=== PATIENT | female | born 1960 | race Caucasian/White ===

== ENCOUNTER → 2017-12-15 | Outpatient (CLI) | payer MEDICARE ==
[~2017-12-15] MED LIST: ALPR1TAB7; AMPH30CA; DEXA4TAB; ESTR1TAB24; GADOBUTROL 7.5 MMOL/7.5 ML (GADAVIST) VIAL IV ONE; HYDR-3820; HYDR-3820 PO; HYDR25TA4; LEVO5TAB12; LISI-552; OMEP20TA7 PO; ONDA8TAB12; PROC10TA10; VORT10TA
[2017-12-15 09:10] LABS: BUN/CREATININE RATIO 19; CREATININE SERUM 0.79 MG/DL (0.60-1.30); GFR ESTIMATED > 60
--- NOTE | 2018-01-11 13:49 | RADIOLOGY REPORT ---
NAME: TITI DEL CID [facility] REC#: [id number] PT STATUS: REG CLI : 1960 PHYSICIAN: FINN BLUM, Mk ADMIT DATE: 12/15/17/RAD CORRECTED Signed Date of Exam:12/15/17 MRI BREAST BILAT W&W/O CON TECHNIQUE: Utilizing 1.5 Yulisa magnet, patient was placed in a prone position with 8-channel dual breast coil utilized. Axial STIR precontrasted image and axial T1 fat-sat postcontrast high-resolution images obtained. Sagittal T2-weighted images precontrast, bilaterally, as well. Sagittal vibrant temporal images were obtained pre and post contrast with bolus technique utilized of gadolinium. Images are postcontrast immediately and subsequently for 7 minutes. Pre and post contrasted images are then evaluated with [employer] for evaluation of possible angiogenesis. INDICATION: Breast cancer COMPARISON: 11/23/2009 FINDINGS: The bilateral breasts demonstrate moderate background glandularity. The bilateral breasts demonstrate mild background enhancement. A bilobed mildly spiculated mass is identified within the far posterior depth of the upper outer quadrant of the left breast. This mass measures 3.5 x 2.3 x 3.0 cm. This demonstrates predominately washout kinetics. Magnetic susceptibility artifact related to a presumed biopsy clip is seen along the inferior margin of this mass lesion. This mass lesion extends to the left pectoralis musculature with loss of the fat plane between this mass and the pectoralis muscle. There is enhancement of the pectoralis fascia. However, no definite enhancement of the pectoralis musculature itself. This mass extends to approximately 3 mm away from the skin surface of the lateral left breast. Additional scattered foci of enhancement are identified within the bilateral breasts without additional suspicious enhancing mass or non-mass enhancement. An abnormally enlarged lymph node within the left axilla is present. This lymph node measures 2.3 x 1.7 x 2.1 cm. Loss of the normal fatty hilum. No additional pathologically enlarged lymph nodes identified within the axilla. No internal mammary adenopathy. Minimally visualized portions of the upper abdomen are unremarkable. IMPRESSION: Unifocal 3.5 cm mass within the far posterior depth of the upper outer quadrant of the left breast is felt to relate to carcinoma. Recommend correlation with prior biopsy. This mass is seen extending to the left pectoralis musculature with enhancement of the fascia without definite enhancement/invasion of the muscle itself. This is associated with an abnormal left axillary lymph node which is concerning for regional metastatic disease. This lymph node was identified on the recent ultrasound. No evidence of malignancy within the right breast. FOLLOWUP: Biopsy of this highly suspicious mass within the upper outer quadrant of the left breast is recommended if this has not already been performed. Given that there is an apparent biopsy clip within this mass, this has likely been biopsied. However, no available biopsy images, report, or pathology report are available. Therefore, recommend correlation. If this has previously been biopsied and demonstrated to relate to an underlying cancer, then surgical consultation would be recommended. If the mass within the upper outer quadrant of the left breast has not been biopsied, this examination is considered a BI-RADS category 4, suspicious of malignancy, ultrasound-guided biopsy is recommended. However, if this mass has been recently biopsied and shown to relate to carcinoma, then the examination would be considered a BI-RADS category 6, known malignancy and surgical consultation would be indicated. Dictated by: Dictated on workstation # [id number] Dict: 12/16/17 0912 Trans: 12/16/[id number] [facility] [id number] Interpreted by: ANNA MARIE DEL VALLE MD Electronically signed by: ANNA MARIE DEL VALLE MD 12/16/17 1641 [facility]
== END ==
LOC: RAD 08:38
PROVIDERS: ATTEND Nurse Practitioner Family
DX: C50.912 Malignant neoplasm of unspecified site of left female breast (principal); C77.3 Secondary and unspecified malignant neoplasm of axilla and upper limb lymph nodes
CPT/HCPCS: 36415; 77059; 82565; 84520

== ENCOUNTER 2018-01-11 04:27 | Emergency (ER) | payer MEDICARE ==
[~2018-01-11] VITALS: Ht 162.6 cm; Wt 58.1 kg
--- OUTSIDE RECORDS SUMMARY | 2018-01-11 04:34 | XMS REPORT ---
Author JABIER Molina Organization [employer] Address Unknown Phone Unavailable Care Team Providers Care Pollution Control Technician Name Role Phone JABIER ORTIZ CP Unavailable Allergies No Known Allergies Problems No Known Problems Medications No Known Medications Results No Known Results Summary Purpose [employer] Submission
--- OUTSIDE RECORDS SUMMARY | 2018-01-11 04:34 | XMS REPORT ---
Author Author JABIER ORTIZ [facility] Address [address] [place] [address] Care Team Providers Care Form Grader Operator Name Role Phone JABIER ORTIZ Unavailable PROBLEMS Unknown Problems ALLERGIES Unknown Allergies SOCIAL HISTORY No smoking Hx information available PLAN OF CARE VITAL SIGNS MEDICATIONS Unknown Medications RESULTS No Results PROCEDURES No Known procedures IMMUNIZATIONS No Known Immunizations
[2018-01-11] MEDS ORDERED: KETOROLAC 30 MG/ML VIAL IVP ONE (04:45)
[2018-01-11] MEDS ORDERED: ONDANSETRON 4 MG/2 ML (SDV) Z0FRAN IVP ONE (04:45)
[2018-01-11] MEDS ORDERED: NS IV 1000 ML 1,000 ML IV ONE (04:45)
[2018-01-11 05:10] LABS: BASOPHILS # (AUTO) 0.1 10^3/uL (0.0-0.1); BASOPHILS % (AUTO) 2 % (0-10); EOSINOPHILS % (AUTO) 0 % (0-10); HEMATOCRIT 36 % (35-52); HEMOGLOBIN 13.1 G/DL (11.5-16.0); LYMPHOCYTES # (AUTO) 1.1 X 10^3 (1.0-4.0); LYMPHOCYTES % (AUTO) 13 % (12-44); MEAN CORPUSCULAR HEMOGLOBIN 32 PG (25-34); MEAN CORPUSCULAR HGB CONC 36 G/DL (32-36); MEAN CORPUSCULAR VOLUME 88 FL (80-99); MEAN PLATELET VOLUME 11.7 FL (7.4-10.4); MONOCYTES # (AUTO) 1.4 X 10^3 (0.0-1.0); MONOCYTES % (AUTO) 16 % (0-12); NEUTROPHILS # (AUTO) 5.9 X 10^3 (1.8-7.8); NEUTROPHILS % (AUTO) 69 % (42-75); PLATELET COUNT 210 10^3/uL (130-400); RED BLOOD COUNT 4.09 10^6/uL (4.35-5.85); WHITE BLOOD COUNT 8.5 10^3/uL (4.3-11.0)
[2018-01-11] MEDS ORDERED: HYDR-3820 (05:25)
[2018-01-11] MEDS ORDERED: AMPH30CA (05:25)
[2018-01-11] MEDS ORDERED: PROC10TA10 (05:25)
[2018-01-11] MEDS ORDERED: ESTR1TAB24 (05:25)
[2018-01-11] MEDS ORDERED: ALPR1TAB7 (05:25)
[2018-01-11] MEDS ORDERED: HYDR25TA4 (05:25)
[2018-01-11] MEDS ORDERED: VORT10TA (05:25)
[2018-01-11] MEDS ORDERED: LISI-552 (05:25)
[2018-01-11] MEDS ORDERED: DEXA4TAB (05:25)
[2018-01-11 05:29] LABS: ALANINE AMINOTRANSFERASE 40 U/L (0-55); ALBUMIN 4.5 GM/DL (3.2-4.5); ALKALINE PHOSPHATASE 114 U/L (40-136); BILIRUBIN,TOTAL 0.4 MG/DL (0.1-1.0); BUN/CREATININE RATIO 31; CALCIUM 9.3 MG/DL (8.5-10.1); CARBON DIOXIDE 26 MMOL/L (21-32); CHLORIDE 88 MMOL/L (98-107); CREATINE KINASE 51 U/L (29-168); CREATININE SERUM 0.65 MG/DL (0.60-1.30); GFR ESTIMATED > 60; GLUCOSE 120 MG/DL (70-105); MAGNESIUM 1.9 MG/DL (1.8-2.4); POTASSIUM 3.3 MMOL/L (3.6-5.0); SODIUM 127 MMOL/L (135-145)
[2018-01-11] MEDS ORDERED: LEVO5TAB12 (05:29)
[2018-01-11] MEDS ORDERED: ONDA8TAB12 (05:29)
--- NOTE | 2018-01-11 05:32 | ED General ---
General Chief Complaint: Abdominal/GI Problems Stated Complaint: STARTED CHEMO 1 WK AGO, FEELS TERRIBLE Nursing Triage Note: Pt presents reporting N/V/D with post op chemo 1 week. Body aches reported Nursing Sepsis Screen: No Definite Risk Source of Information: Patient, Family Exam Limitations: No Limitations History of Present Illness Date Seen by Provider: Jan 11, 2018 Time Seen by Provider: 04:30 Initial Comments This 57-year-old woman presents to the emergency room with diarrhea, vomiting, and generalized pain that started after finishing her first round of chemotherapy one week ago. The symptoms started about 4 days ago. She was recently diagnosed with breast cancer. She is receiving her cancer treatment in the [facility]. She received a Neulasta injection after the chemotherapy. She denies fever, cough, or other symptoms of acute infectious illness. Patient took Xanax just prior to arrival. Allergies and Home Medications Allergies Coded Allergies: No Known Drug Allergies (Unverified , 12/15/17) Patient Home Medication List Home Medication List Reviewed: Yes Review of Systems Constitutional: no symptoms reported EENTM: no symptoms reported Respiratory: no symptoms reported Cardiovascular: no symptoms reported Gastrointestinal: see HPI Genitourinary: no symptoms reported : No Musculoskeletal: see HPI Skin: no symptoms reported Psychiatric/Neurological: No Symptoms Reported Hematologic/Lymphatic: No Symptoms Reported Immunological/Allergic: no symptoms reported Past Fdqwiig-Yxainh-Qjhzvj Hx Past Med/Social Hx: Reviewed and Corrections made Patient Social History Alcohol Use: Occasionally Uses Recreational Drug Use: No Smoking Status: Former Smoker Former Smoker, Quit: Jun 20, 1997 Recent Foreign Travel: No Contact w/Someone Who Travel: No Recent Infectious Disease Expo: No Recent Hopitalizations: No Seasonal Allergies Seasonal Allergies: No Past Medical History Surgeries: Yes (port) Orthopedic Respiratory: No Cardiac: Yes Hypertension Neurological: No : No Reproductive Disorders: No Genitourinary: No Gastrointestinal: No Musculoskeletal: Yes ([place]) Endocrine: No HEENT: No Cancer: Yes Breast Did You Recieve Any Treatments: Yes What Type of Treatment Did You: Chemotherapy Psychosocial: No Integumentary: No Physical Exam Vital Signs Vital Signs - First Documented 01/11/18 04:32 Temp 97.5 Pulse 77 Resp 20 B/P (MAP) 173/98 (123) Pulse Ox 100 O2 Delivery Room Air Capillary Refill : Less Than 3 Seconds Height, Weight, BMI Height: 5'4.00" Weight: 128lbs. oz. 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 as Tested Skin: Normal Color, Warm/Dry Progress/Results/Core Measures Suspected Sepsis Recent Fever Within 48 Hours: No Infection Criteria Present: None New/Unexplained Altered Menta: No Sepsis Screen: No Definite Risk SIRS Temperature:97.5 Pulse: 77 Respiratory Rate: 20 Laboratory Tests 01/11/18 05:00: White Blood Count 8.5 Blood Pressure 173 /98 Mean: 123 Laboratory Tests 01/11/18 05:00: Creatinine 0.65, Platelet Count 210, Total Bilirubin 0.4 Results/Orders Lab Results Laboratory Tests Test 01/11/18 05:00 01/11/18 06:10 Range/Units White Blood Count 8.5 4.3-11.0 10^3/uL Red Blood Count 4.09 L 4.35-5.85 10^6/uL Hemoglobin 13.1 11.5-16.0 G/DL Hematocrit 36 35-52 % Mean Corpuscular Volume 88 80-99 FL Mean Corpuscular Hemoglobin 32 25-34 PG Mean Corpuscular Hemoglobin Concent 36 32-36 G/DL Red Cell Distribution Width 11.0 10.0-14.5 % Platelet Count 210 130-400 10^3/uL Mean Platelet Volume 11.7 H 7.4-10.4 FL Neutrophils (%) (Auto) 69 42-75 % Lymphocytes (%) (Auto) 13 12-44 % Monocytes (%) (Auto) 16 H 0-12 % Eosinophils (%) (Auto) 0 0-10 % Basophils (%) (Auto) 2 0-10 % Neutrophils # (Auto) 5.9 1.8-7.8 X 10^3 Lymphocytes # (Auto) 1.1 1.0-4.0 X 10^3 Monocytes # (Auto) 1.4 H 0.0-1.0 X 10^3 Eosinophils # (Auto) 0.0 0.0-0.3 10^3/uL Basophils # (Auto) 0.1 0.0-0.1 10^3/uL Sodium Level 127 L 135-145 MMOL/L Potassium Level 3.3 L 3.6-5.0 MMOL/L Chloride Level 88 L 98-107 MMOL/L Carbon Dioxide Level 26 21-32 MMOL/L Anion Gap 13 5-14 MMOL/L Blood Urea Nitrogen 20 H 7-18 MG/DL Creatinine 0.65 0.60-1.30 MG/DL Estimat Glomerular Filtration Rate > 60 BUN/Creatinine Ratio 31 Glucose Level 120 H 70-105 MG/DL Calcium Level 9.3 8.5-10.1 MG/DL Magnesium Level 1.9 1.8-2.4 MG/DL Total Bilirubin 0.4 0.1-1.0 MG/DL Aspartate Amino Transf (AST/SGOT) 32 5-34 U/L Alanine Aminotransferase (ALT/SGPT) 40 0-55 U/L Alkaline Phosphatase 114 40-136 U/L Total Creatine Kinase 51 29-168 U/L Total Protein 7.0 6.4-8.2 GM/DL Albumin 4.5 3.2-4.5 GM/DL Urine Color BORA H Urine Clarity SLIGHTLY CLOUDY Urine pH 6 5-9 Urine Specific [place] 1.025 H 1.016-1.022 Urine Protein 3+ H NEGATIVE Urine Glucose (UA) NEGATIVE NEGATIVE Urine Ketones 2+ H NEGATIVE Urine Nitrite NEGATIVE NEGATIVE Urine Bilirubin NEGATIVE NEGATIVE Urine Urobilinogen NORMAL NORMAL MG/DL Urine Leukocyte Esterase 1+ H NEGATIVE Urine RBC (Auto) 5+ H NEGATIVE Urine RBC TNTC H /HPF Urine WBC 2-5 /HPF Urine Squamous Epithelial Cells 2-5 /HPF Urine Crystals NONE /LPF Urine Bacteria MODERATE H /HPF Urine Casts NONE /LPF Urine Mucus NEGATIVE /LPF Urine Culture Indicated YES My Orders Orders - ONEIL RICHARD MD Cbc With Automated Diff (01/11/18 04:33) Comprehensive Metabolic Panel (01/11/18 04:33) Magnesium (01/11/18 04:33) Ua Culture If Indicated (01/11/18 04:33) Saline Lock/Iv-Start (01/11/18 04:33) Creatine Kinase (01/11/18 04:45) Ketorolac Injection (Toradol Injection) (01/11/18 04:45) Ondansetron Injection (Zofran Injectio (01/11/18 04:45) Saline Lock/Iv-Start (01/11/18 04:45) Ns Iv 1000 Ml (Sodium Chloride 0.9%) (01/11/18 04:45) Implanted Port: Ok To Use (01/11/18 04:46) Fentanyl Injection (Sublimaze Injection (01/11/18 05:45) Lidocaine 2% Viscous 15 Ml (Xylocaine Vi (01/11/18 05:45) Antacid Suspension (Mylanta Suspension (01/11/18 05:45) Saline Lock/Iv-Start (01/11/18 06:19) Lactated Ringers (Lr 1000 Ml Iv Solution (01/11/18 06:19) Urine Culture (01/11/18 06:10) Hydrocodone/Apap 5/325 Tablet (Lortab 5 (01/11/18 07:15) Medications Given in ED Current Medications Medications Dose Ordered Sig/[place] Route Start Time Stop Time Status Last Admin Dose Admin Al Hydrox/Mg Hydrox/Simethicone 30 ml ONCE ONCE PO 01/11/18 05:45 01/11/18 05:46 DC 01/11/18 05:53 30 ML Fentanyl Citrate 50 mcg ONCE ONCE IVP 01/11/18 05:45 01/11/18 05:46 DC 01/11/18 05:52 50 MCG Ketorolac Tromethamine 15 mg ONCE ONCE IVP 01/11/18 04:45 01/11/18 04:47 DC 01/11/18 05:09 15 MG Lactated Ringer's 1,000 ml @ 0 mls/hr Q0M ONCE IV 01/11/18 06:19 01/11/18 06:21 DC 01/11/18 06:22 999 MLS/HR Lidocaine HCl 15 ml ONCE ONCE PO 01/11/18 05:45 01/11/18 05:46 DC 01/11/18 05:53 15 ML Ondansetron HCl 8 mg ONCE ONCE IVP 01/11/18 04:45 01/11/18 04:47 DC 01/11/18 05:09 8 MG Sodium Chloride 1,000 ml @ 0 mls/hr Q0M ONCE IV 01/11/18 04:45 01/11/18 04:47 DC 01/11/18 05:09 999 MLS/HR Vital Signs/I&O 01/11/18 04:32 Temp 97.5 Pulse 77 Resp 20 B/P (MAP) 173/98 (123) Pulse Ox 100 O2 Delivery Room Air Capillary Refill : Less Than 3 Seconds Blood Pressure Mean: 123 Progress Note #1: Time: 05:33 Progress Note Patient has been treated with Toradol, Zofran, and IV fluids. Labs are pending. Progress Note #2: Time: 06:06 Progress Note Patient complaint of heartburn sensation started after vomiting. She states her pain has improved minimally after Toradol. Patient was previously rated as 12/10. She now states it is 8/10. Fentanyl was ordered for further pain management. Progress Note #3: Time: 06:15 Progress Note GI cocktail and fentanyl significantly improved her pain. UA is pending. Progress Note #4: Time: 07:08 Progress Note Patient's pain is fairly well controlled now. She complains of palpitations without chest pain. She was placed on the monitor and found to be in sinus rhythm. She will be given hydrocodone prior to departure for continued treatment of her pain. She is finishing her second liter of IV fluid. Patient was noted to have significant hematuria on her urinalysis. She reports this is from some vaginal bleeding she has been having recently. This was evaluated by [facility] not long ago. She reports biopsied from the [facility] was negative. Departure Impression Primary Impression: Nausea and vomiting Qualified Codes: R11.2 - Nausea with vomiting, unspecified Additional Impressions: GERD (gastroesophageal reflux disease) Qualified Codes: K21.9 - Gastro-esophageal reflux disease without esophagitis Generalized pain Breast cancer Qualified Codes: C50.919 - Malignant neoplasm of unspecified site of unspecified female breast Palpitations Vaginal bleeding Disposition: 01 HOME, SELF-CARE Condition: Improved Departure-Patient Inst. Referrals: NO,LOCAL PHYSICIAN (PCP/Family) Primary Care Physician Patient Instructions: Chemotherapy Add. Discharge Instructions: Drink plenty of clear liquids. Use Zofran (ondansetron) as your primary nausea medication. Add Compazine (prochlorperazine) if needed for nausea not controlled by Zofran. You may use your hydrocodone 1-2 tablets every 4 hours as needed for pain. Use your antacid medication (omeprazole) to help with heartburn. Contact your oncologist later today for further direction and for advice on treating your loss of appetite. If your stomach and heartburn can tolerate ibuprofen, you may take up to 400 mg every 6 hours as needed. Take with food or milk to help buffer your stomach. Please also follow up with your women's health provider regarding the vaginal bleeding. All discharge instructions reviewed with patient and/or family. Voiced understanding. Scripts Hydrocodone/Acetaminophen (Hydrocodon-Acetaminophn 10-325) 1 Each Tablet 1-2 EACH PO Q4H PRN for PAIN-MODERATE TO SEVERE, #20 TAB Prov: ONEIL RICHARD MD 01/11/18 Omeprazole (Omeprazole) 20 Mg Tablet.dr 20 MG PO DAILY, #30 TAB Prov: ONEIL RICHARD MD 01/11/18 ONEIL RICHARD MD Jan 11, 2018 05:32
[2018-01-11] MEDS ORDERED: LIDOCAINE 2% VISCOUS 15 ML UDC PO ONE (05:45)
[2018-01-11] MEDS ORDERED: ANTACID SUSP 30 ML UDC (MYLANTA) PO ONE (05:45)
[2018-01-11] MEDS ORDERED: fentaNYL INJECTION 100 MCG/2 ML AMP IVP ONE (05:45)
[2018-01-11] MEDS ORDERED: LACTATED RINGERS 1,000 ML IV ONE (06:19)
[2018-01-11 06:30] LABS: BILIRUBIN,URINE NEGATIVE (NEGATIVE); CLARITY,URINE SLIGHTLY CLOUDY; COLOR,URINE AMBER; GLUCOSE, URINE (UA) NEGATIVE (NEGATIVE); KETONES,URINE 2+ (NEGATIVE); LEUKOCYTE ESTERASE ,URINE 1+ (NEGATIVE); NITRITE,URINE NEGATIVE (NEGATIVE); PH,URINE 6 (5-9); PROTEIN,URINE 3+ (NEGATIVE); UROBILINOGEN,URINE NORMAL (NORMAL)
[2018-01-11 06:46] LABS: BACTERIA,URINE MODERATE /HPF; RBC,URINE TNTC /HPF
[2018-01-11] MEDS ORDERED: OMEP20TA7 PO (07:13)
[2018-01-11] MEDS ORDERED: HYDR-3820 PO (07:13)
[2018-01-11] MEDS ORDERED: HYDROcodone/APAP 5 MG/325 MG (LORTAB) TAB PO ONE (07:15)
[2018-01-11 07:32] VITALS: BP 143/81
== END 2018-01-11 07:43 | disposition home or self-care (01) ==
LOC: EDUNIT# 04:27 → ER 04:30
DX: C50.919 Malignant neoplasm of unspecified site of unspecified female breast (principal); K21.9 Gastro-esophageal reflux disease without esophagitis; R00.0 Tachycardia, unspecified; N93.9 Abnormal uterine and vaginal bleeding, unspecified; I10 Essential (primary) hypertension; Z92.21 Personal history of antineoplastic chemotherapy; Z87.891 Personal history of nicotine dependence
CPT/HCPCS: 36415; 80053; 81000; 82550; 83735; 85025; 87088; 96361; 96374; 96375

== ENCOUNTER → 2020-08-18 | Outpatient (CLI) | payer MEDICARE ==
[~2020-08-18] MED LIST changes: +ACHYD1T; +ACHYD1T PO; -AMPH30CA; +DEXT30CA4; -GADOBUTROL 7.5 MMOL/7.5 ML (GADAVIST) VIAL IV ONE; +HOLD METFORMIN - RECEIVED CONTRAST 20 ML VIAL IV SCH; -HYDR-3820; -HYDR-3820 PO; +IOHEXOL 350 MG/ML 100 ML (OMNIPAQUE 350) VIAL IV ONE; -LISI-552; +LISI20TA26; +NS 100 ML (IVPB) BAG IV ONE; -ONDA8TAB12; +ONDA8TAB15
[2020-08-18] MEDS: CATHETER FLUSH 10 ML SYR IV PRN ×2 (11:44→13:17)
--- NOTE | 2020-08-18 12:50 | Diagnostic Imaging Report ---
PROCEDURE: CT chest and abdomen with contrast. TECHNIQUE: Multiple contiguous axial images were obtained through the chest and abdomen after the administration of intravenous contrast. Auto Exposure Controls were utilized during the CT exam to meet ALARA standards for radiation dose reduction. INDICATION: History of breast cancer. I have no relevant comparison. FINDINGS? There are bilateral groundglass pulmonary opacities which may be areas of chronic scarring partial atelectasis or other etiology including viral pathogens in the appropriate scenario correlate clinically. No soft tissue density lung mass. There is some left upper lobe subpleural scarring as a chronic finding. The internal mammary lymph node chains and axilla appeared unremarkable. Hilar and mediastinal stations appeared normal, thoracic aorta patent and nonaneurysmal. There is no pleural or pericardial effusion. No acute or suspicious soft tissue or osseous chest wall lesion the visualized supraclavicular fossa unremarkable. Abdomen and pelvis: Liver, gallbladder, bile ducts, spleen, adrenals and pancreas unremarkable. The kidneys are unobstructed, there is a right renal calculus measuring 5 mm nonobstructing. There is no ascites, abscess, hematoma or acute fluid collection. No abdominal lymphadenopathy. IMPRESSION: 1. No findings of metastatic disease to the chest or abdomen. 2. Etiology indeterminate, bilateral groundglass pulmonary opacities, viral infectious etiologies could not be excluded. Dictated by: Dictated on workstation # [id number]
--- NOTE | 2020-08-18 13:02 | Diagnostic Imaging Report ---
INDICATION: Left breast carcinoma. Comparison is made prior mammogram 11/23/2017. 2-D and 3-D bilateral diagnostic mammography was performed with CAD. Both breasts are heterogeneously dense, limiting the sensitivity of mammography. Previously noted spiculated mass in the upper outer left breast has been surgically removed. There are post therapeutic changes in the left breast. There are benign calcifications bilaterally. There is a clip in the right breast. No recurrent mass or malignant appearing microcalcifications are seen. Axillae are unremarkable. IMPRESSION: BI-RADS Category 2 Post therapeutic changes left breast. No mammographic features suspicious for malignancy are identified. ACR BI-RADS Category 2: Benign findings. Result letter will be mailed to the patient. Note: At least 10% of breast cancer is not imaged by mammography. Dictated by: Dictated on workstation # [id number]
--- NOTE | 2020-08-18 17:15 | Diagnostic Imaging Report ---
INDICATION: History of breast cancer. Previous spinal surgery. COMPARISON: None. TECHNIQUE: The patient received 25.5 mCi intravenous dose technetium 99 MDP. After 3 hours, whole-body planar imaging performed. FIN\DINGS: There is some degenerative scoliotic curvature to the thoracolumbar spine. Degenerative endplate changes versus endplate compression at the L5 superior endplate noted. There were no suspicious sonographic findings felt suggestive of bone scan evidence for osseous metastases. Soft tissue uptake and excretion by urinary tracts noted. The ribs, sternum, manubrium and calvarium unremarkable. IMPRESSION: 1. Degenerative versus endplate compression uptake at the L5 level. If there is pain present or change in symptoms at that level, plain film correlation recommended. 2. No findings felt suggestive of bone scan evidence for a pattern of osseous metastases. Dictated by: Dictated on workstation # [id number]
== END ==
LOC: CARD 12:00
PROVIDERS: ATTEND Internal Medicine Hematology & Oncology
DX: C50.912 Malignant neoplasm of unspecified site of left female breast (principal)
CPT/HCPCS: 71260; 74160; 77066; 78306; A9503; G0279; 77062

== ENCOUNTER → 2020-10-28 | Outpatient (RCR) | payer MEDICARE ==
[2020-07-30 08:56] LABS: BASOPHILS # (AUTO) 0.1 10^3/uL (0.0-0.1); BASOPHILS % (AUTO) 1 % (0-10); EOSINOPHILS % (AUTO) 1 % (0-10); HEMATOCRIT 38 % (35-52); LYMPHOCYTES # (AUTO) 1.4 10^3/uL (1.0-4.0); LYMPHOCYTES % (AUTO) 27 % (12-44); MEAN CORPUSCULAR HEMOGLOBIN 31 pg (25-34); MEAN CORPUSCULAR HGB CONC 34 g/dL (32-36); MEAN CORPUSCULAR VOLUME 91 fL (80-99); MEAN PLATELET VOLUME 9.5 fL (9.0-12.2); MONOCYTES # (AUTO) 0.5 10^3/uL (0.0-1.0); MONOCYTES % (AUTO) 11 % (0-12); NEUTROPHILS % (AUTO) 60 % (42-75); PLATELET COUNT 283 10^3/uL (130-400)
[2020-07-30 09:17] LABS: ALANINE AMINOTRANSFERASE 13 U/L (0-55); ALBUMIN 4.3 GM/DL (3.2-4.5); ALKALINE PHOSPHATASE 87 U/L (40-136); BILIRUBIN,TOTAL 0.4 MG/DL (0.1-1.0); BUN/CREATININE RATIO 13; CALCIUM 9.5 MG/DL (8.5-10.1); CARBON DIOXIDE 27 MMOL/L (21-32); CHLORIDE 98 MMOL/L (98-107); CREATININE SERUM 0.83 MG/DL (0.60-1.30); GFR ESTIMATED > 60; GLUCOSE 94 MG/DL (70-105); POTASSIUM 3.7 MMOL/L (3.6-5.0); SODIUM 136 MMOL/L (135-145); TOTAL PROTEIN 7.1 GM/DL (6.4-8.2)
[~2020-10-28] MED LIST changes: -HOLD METFORMIN - RECEIVED CONTRAST 20 ML VIAL IV SCH; -IOHEXOL 350 MG/ML 100 ML (OMNIPAQUE 350) VIAL IV ONE; -NS 100 ML (IVPB) BAG IV ONE
[2020-10-28 09:58] LABS: BASOPHILS # (AUTO) 0.1 10^3/uL (0.0-0.1); BASOPHILS % (AUTO) 1 % (0-10); EOSINOPHILS # (AUTO) 0.1 10^3/uL (0.0-0.3); EOSINOPHILS % (AUTO) 1 % (0-10); HEMATOCRIT 39 % (35-52); LYMPHOCYTES # (AUTO) 1.3 10^3/uL (1.0-4.0); LYMPHOCYTES % (AUTO) 22 % (12-44); MEAN CORPUSCULAR HEMOGLOBIN 31 pg (25-34); MEAN CORPUSCULAR HGB CONC 34 g/dL (32-36); MEAN CORPUSCULAR VOLUME 91 fL (80-99); MEAN PLATELET VOLUME 9.6 fL (9.0-12.2); MONOCYTES # (AUTO) 0.6 10^3/uL (0.0-1.0); MONOCYTES % (AUTO) 10 % (0-12); NEUTROPHILS % (AUTO) 66 % (42-75); PLATELET COUNT 325 10^3/uL (130-400)
[2020-10-28 10:21] LABS: ALANINE AMINOTRANSFERASE 19 U/L (0-55); ALBUMIN 4.5 GM/DL (3.2-4.5); ALKALINE PHOSPHATASE 96 U/L (40-136); BILIRUBIN,TOTAL 0.4 MG/DL (0.1-1.0); BUN/CREATININE RATIO 11; CALCIUM 9.8 MG/DL (8.5-10.1); CARBON DIOXIDE 27 MMOL/L (21-32); CHLORIDE 93 MMOL/L (98-107); CREATININE SERUM 0.85 MG/DL (0.60-1.30); GFR ESTIMATED > 60; GLUCOSE 135 MG/DL (70-105); POTASSIUM 3.7 MMOL/L (3.6-5.0); SODIUM 130 MMOL/L (135-145); TOTAL PROTEIN 7.3 GM/DL (6.4-8.2)
== END | disposition home or self-care (01) ==
LOC: ONC 07-30 08:18
PROVIDERS: ATTEND Internal Medicine Hematology & Oncology
DX: C50.412 Malignant neoplasm of upper-outer quadrant of left female breast (principal); I10 Essential (primary) hypertension; F31.9 Bipolar disorder, unspecified; Z92.21 Personal history of antineoplastic chemotherapy; Z92.3 Personal history of irradiation; Z98.890 Other specified postprocedural states; Z90.12 Acquired absence of left breast and nipple
CPT/HCPCS: 80053; 85025; 86300; G0463; 99213; 99214

== ENCOUNTER → 2022-08-17 | Outpatient (RCR) | payer MEDICARE ==
[~2022-08-17] MED LIST changes: +OMEP20TA56 PO; -OMEP20TA7 PO; +ONDA-106; -ONDA8TAB15
== END ==
PROVIDERS: ATTEND Nurse Practitioner Family
DX: M54.50 Low back pain, unspecified (principal); R53.1 Weakness; Z98.890 Other specified postprocedural states